=== PATIENT | male | born 1980 | race Caucasian/White ===

== ENCOUNTER 2019-11-25 01:15 | Outpatient (CLI) | payer OTHER, SELFPAY ==
[2019-11-25 11:29] LABS: Abs Immature Grans 0.03 10^3/uL (0.0-0.06); Absolute Basophil Count 0.02 10^3/uL (0.0-0.2); Absolute Eosinophil Count 0.22 10^3/uL (0.0-0.7); Absolute Lymphocyte Count 2.78 10^3/uL (1.2-3.4); Absolute Monocyte Count 0.45 10^3/uL (0.1-0.8); Absolute Neutrophil Count 5.13 10^3/uL (1.2-6.7); Basophils % 0.2; Eosinophils % 2.5; HGB 15.9 g/dL (13.5-17.5); Immature Grans % 0.3; Lymphocytes % 32.2; MCH 32.8 pg (27.0-33.0); MCHC 34.6 % (32.0-36.0); MCV 94.8 fL (80-95); MPV 10.2 fL (8.0-11.0); Monocytes % 5.2; Neutrophils % 59.6; Nucleated RBC 0 %; Platelet Count 200 10^3/uL (130-400); RBC 4.85 10^6/uL (4.36-5.78); RDW 12.6 % (11.8-14.1); RDW-SD 44.1 fL; WBC 8.63 10^3/uL (4.4-10.8)
[2019-11-25 13:46] LABS: ALT 23 U/L (16-63); AST 15 U/L (15-37); Albumin 4.2 g/dL (3.4-5.0); Alkaline Phosphatase 71 U/L (46-116); Anion Gap 8.7 mmol/L (3-11); BUN 13 mg/dL (7-18); Bilirubin, Total 0.4 mg/dL (0.2-1.0); CO2 27.3 mmol/L (21.0-32.0); CREATININE 1.01 mg/dL (0.70-1.30); Calcium 9.1 mg/dL (8.5-10.1); Calculated LDL 86 mg/dL (<100); Chloride 106 mmol/L (98-107); Cholesterol 151 mg/dL (<200); Glucose 100 mg/dL (74-106); HDL Cholesterol 53 mg/dL (40-60); Potassium 4.3 mmol/L (3.5-5.1); Sodium 142 mmol/L (136-145); Total Protein 6.9 g/dL (6.4-8.2); Triglyceride 61 mg/dL (<150)
[2019-11-26 10:18] LABS: Hepatitis C Ab w Rflx HCV PCR Negative (Negative)
== END 2019-11-25 01:35 ==
PROVIDERS: PCP Nurse Practitioner Family; Visit Provider Nurse Practitioner Family
DX: E78.5 Hyperlipidemia, unspecified (principal); Z51.81 Encounter for therapeutic drug level monitoring; Z11.59 Encounter for screening for other viral diseases
CPT/HCPCS: 36415; 80053; 80061; 86803; 85025